=== PATIENT | female | born 2000 | race Two or more races ===

== ENCOUNTER 2021-11-03 09:03 | Outpatient (REF) | payer OTHER, SELFPAY ==
[2021-11-03 09:57] LABS: COVID-19 Test Negative (Negative); IDNOW Serial# 55D5AD1C
== END 2021-11-03 09:04 | disposition home or self-care (01) ==
LOC: HO.LAB 09:03
PROVIDERS: Visit Provider Internal Medicine
DX: Z20.822 Contact with and (suspected) exposure to COVID-19 (principal)
CPT/HCPCS: 36415; 87635; C9803

== ENCOUNTER 2023-05-27 12:29 | Outpatient (AMB) | payer OTHER, SELFPAY ==
--- NOTE | 2023-05-27 12:41 | MHC.OFFWIV ---
Intake Vital Signs 05/27/23 12:44 BP 110/68 Blood Pressure Location Rt brachial Position Sitting Pulse 80 Pulse Source Pulse Oximeter Temp 97.6 F Temp Source Temporal Artery Scan Pulse Oximetry (%) 95 Oxygen Delivery Method Room Air Intake Visit Reasons: EST/both ears blocked Intake Note: Patient here for bilat ear pain, she states she was washing her hair last week when she got water in her right ear and water has not come out, she also mentioned her left ear feels blocked. denies headaches and any dizziness. Patient Tobacco Use Status: Never used Tobacco Allergies No Known Allergies Allergy (Verified 05/27/23 12:44) Do you need a note to return to daycare/school/sports/work: No HPI HPI Comments History of Present Illness Details The patient presents to urgent care for evaluation of bilateral ear discomfort. She states that she took a shower and yesterday got water in her ears and since then has had decreased hearing. Her ears feel blocked the right more so than the left. She has been putting drops of [id number] ear pain relief without much help. [facility] Social History Patient Tobacco Use Status: Never used Tobacco Review of Systems Const Reports headache(s) and Denies increased appetite ENT Reports headache(s), Reports nasal obstruction, Denies disequilibrium, Reports post nasal drip, Reports sinus pain and Denies sore throat Card Denies radiating jaw, neck or arm pain and Denies dyspnea Resp Denies hemoptysis and Denies dyspnea Neuro Reports headache(s) and Denies disequilibrium Physical Exam Vital Signs: Last Vital Signs Temp 97.6 F 05/27/23 12:44 Pulse 80 05/27/23 12:44 BP 110/68 05/27/23 12:44 Pulse Ox 95 05/27/23 12:44 Oxygen Delivery Method Room Air 05/27/23 12:44 Const General: healthy appearing and no acute distress HEENT Other: The right ear canal occluded with cerumen Chest Chest palpation & inspection: normal inspection of the chest Resp Effort & Inspection: normal respiratory effort and able to speak in complete sentences Assessment & Plan Assessment & Plan (1) Impacted cerumen of right ear: Code(s): H61.21 - Impacted cerumen, right ear Plan The patient presents for evaluation of decreased hearing and cerumen impaction. Hydrogen peroxide was instilled in the ear and the right ear was subsequently irrigated with warm water. The impaction was not fully removed . The ear canal became somewhat red. Patient was advised to use Debrox softening drops and return next week for irrigation is not fully removed. Coding Level of Care Code Est Pt Level 3 (15039) Diagnoses Impacted cerumen of right ear H61.21
[2023-05-27 12:44] VITALS: BP 110/68; PULSE 80; TEMP 36.4; O2SAT 95
== END 2023-05-27 16:57 | disposition home or self-care (01) ==
PROVIDERS: PCP Internal Medicine; Visit Provider Emergency Medicine
DX: H61.21 Impacted cerumen, right ear (principal)
CPT/HCPCS: 99213

== ENCOUNTER 2024-04-13 12:46 | Outpatient (AMB) | payer OTHER, SELFPAY ==
--- NOTE | 2024-04-13 12:48 | AM.OFFWIN_ITS ---
Intake Vital Signs 04/13/24 12:50 Height 5 ft 1 in Weight 203 lb BMI 38.4 BP 118/76 Blood Pressure Location Rt brachial Position Sitting Pulse 67 Pulse Source Pulse Oximeter Temp 99.1 F Temp Source Oral Pulse Oximetry (%) 99 Oxygen Delivery Method Room Air Intake Visit Reasons: EP ?infection on toes after pedi Intake Note: pt here c/o ? infection on toes after pedicure 2 weeks ago. Pus on great toe of left foot. Patient Tobacco Use Status: Never used Tobacco Allergies No Known Allergies Allergy (Verified 04/13/24 12:50) Do you need a note to return to daycare/school/sports/work: Yes HPI HPI Comments History of Present Illness Details Patient is a 23-year-old female complaining of a concern of a toe infection. She states 2 weeks ago she got a pedicure including acrylic nails applied on her toes. She states when she was getting a pedicure, she felt a sharp pain in that area. She states about a week later she started feeling pain and noticed a yellow lump adjacent to the nail that is painful when she touches it. She states she has been applying hydrogen peroxide to it daily with no relief PFSH Social History Patient Tobacco Use Status: Never used Tobacco Review of Systems Const All systems reviewed & are unremarkable except as noted in HPI and below Physical Exam Vital Signs: Last Vital Signs Temp 99.1 F 04/13/24 12:50 Pulse 67 04/13/24 12:50 BP 118/76 04/13/24 12:50 Pulse Ox 99 04/13/24 12:50 Oxygen Delivery Method Room Air 04/13/24 12:50 BMI result Body Mass Index 38.4 Const General: cooperative, healthy appearing, comfortable, no acute distress and well developed Orientation/consciousness: patient oriented x3 Limitations: no limitations Neuro General: patient oriented x3 Extrem Other: 0.5 cm yellow fluid filled abscess medial to the right great toenail with surrounding erythema, tenderness to palpation. Right great toenail has a acr ylic nail applied to it which is black in color so I am unable to assess the toenail. Full range of motion of great toe. Office Procedures I&D Drain Details: Cleaned right great toe with Betadine, using sterile scalpel, mid incisional along the lateral side of the great toenail, with immediate expulsion of purulent fluid and some bleeding. Expressed more purulent fluid and small amount of blood then cleaned and applied gauze and a bandage [id number] of Skin Abscess, simple All charges added?: Procedure code (CPT) selection complete Assessment & Plan Assessment & Plan (1) Abscess around great toenail: Code(s): L03.039 - Cellulitis of unspecified toe Plan: Performed I&D with good results/drainage, advised patient to apply Aquaphor and a Band-Aid if she goes out in public. Also recommended removing the acrylic nail is soon as possible once the incision we made today is healed. Plan see above Coding Level of Care Code Est Pt Level 3 (73779) Diagnoses Abscess around great toenail L03.039 CPT Codes I&D Drain - Drain 1: [id number] of Skin Abscess, simple ([id number])
[2024-04-13 12:50] VITALS: BP 118/76; PULSE 67; TEMP 37.3; O2SAT 99; BMI 38.4
== END 2024-04-13 13:17 | disposition home or self-care (01) ==
PROVIDERS: PCP Internal Medicine; Visit Provider Physician Assistant
DX: L02.611 Cutaneous abscess of right foot (principal); L03.031 Cellulitis of right toe
CPT/HCPCS: 10060; 99213

== ENCOUNTER 2024-09-25 11:58 | Outpatient (REF) | payer OTHER, SELFPAY ==
[2024-09-25 16:53] LABS: Influenza A PCR NEGATIVE (Negative); Influenza B PCR NEGATIVE (Negative); Resp Syncy Virus RNA Qual PCR NEGATIVE (Negative); SARS COV2 PCR INHOUSE NEGATIVE (Negative)
== END 2024-09-25 11:59 | disposition home or self-care (01) ==
LOC: HO.CHCLNP 11:58
PROVIDERS: PCP Internal Medicine; Visit Provider Physician Assistant
DX: J06.9 Acute upper respiratory infection, unspecified (principal)
CPT/HCPCS: 0241U; 99212

== ENCOUNTER 2024-09-25 11:58 | Outpatient (AMB) | payer OTHER, SELFPAY ==
[2024-09-25 12:35] VITALS: BP 122/80; PULSE 83; TEMP 36.9; O2SAT 98; BMI 36.8
--- NOTE | 2024-09-25 12:35 | AM.OFFWIN_ITS ---
Intake Vital Signs 09/25/24 12:35 Height 5 ft 1 in Weight 195 lb BMI 36.8 BP 122/80 Blood Pressure Location Rt brachial Position Sitting Pulse 83 Pulse Source Pulse Oximeter Temp 98.5 F Temp Source Oral Pulse Oximetry (%) 98 Oxygen Delivery Method Room Air Intake Visit Reasons: EP-sore throat, fever,running nose,cough, ear pain Intake Note: Patient here for fever, runny nose, cough, bilat ear pain that started last week. Patient Tobacco Use Status: Never used Tobacco Allergies No Known Allergies Allergy (Verified 09/25/24 12:38) Do you need a note to return to daycare/school/sports/work: Yes Return to daycare/school/sports/work/other note: work HPI HPI Comments History of Present Illness Details This is a 23-year-old female with a past medical history of seasonal allergies presenting for evaluation of a sore throat and body aches that started at the end of last week. Patient states over the weekend she developed rhinorrhea and now has a cough. She states that she developed a ?low-grade fever? of 100.1 this morning for which she took no medications. [facility] Social History Patient Tobacco Use Status: Never used Tobacco Review of Systems Const Denies chills, Reports fever(s), Denies headache(s) and Reports lethargy Eyes Reports no additional complaints ENT Reports no additional complaints, Denies otalgia, Denies headache(s), Reports nasal discharge, Denies sinus pressure and Reports sore throat Card Reports no additional complaints and Denies dyspnea Resp Reports cough, Denies hemoptysis, Denies pain with cough, Denies dyspnea and Denies wheezing GI Reports no additional complaints Reports no additional complaints Musc Reports no additional complaints and Reports myalgias Neuro Reports no additional complaints and Denies headache(s) Psych Reports no additional complaints Antelmo/Lymph Reports no additional complaints Aller/Immun Reports no additional complaints and Denies wheezing Physical Exam Vital Signs: Last Vital Signs Temp 98.5 F 09/25/24 12:35 Pulse 83 09/25/24 12:35 BP 122/80 09/25/24 12:35 Pulse Ox 98 09/25/24 12:35 Oxygen Delivery Method Room Air 09/25/24 12:35 BMI result Body Mass Index 36.8 Patient is afebrile. Const General: cooperative, healthy appearing, comfortable, no acute distress, well developed, alert, awake and Physically active; No lethargic Nutritional Appearance: well nourished Orientation/consciousness: patient oriented x3 and No lethargic Limitations: no limitations HEENT Head: Yes normal to inspection and Yes normocephalic Ears: hearing grossly normal bilaterally, external ears normal, TM's normal bilaterally and EAC's normal General nose exam: Normal external nose present Face and sinus: Yes normal facial exam Mouth: Normal oral and palatal mucosa present Teeth and gingiva: dentition normal Throat: Yes posterior oropharynx normal (There is no edema, erythema or exudates of the posterior oropharynx; +pnd ) and Yes postnasal drainage Eyes General: appearance normal, both eyes and all related structures Conjunctivae: conjunctivae normal EOM: EOMs intact bilaterally Neck Lymphatic: no lymphadenopathy noted Resp Effort & Inspection: normal respiratory effort, able to speak in complete sentences, no audible wheezes, no cough and no respiratory distress Cardio Rate: regular rate Rhythm: regular rhythm Skin General skin exam: no rashes or lesions noted Neuro General: patient oriented x3 Psych Appearance: grossly normal Mental Status: mental status grossly normal Insight: Good insight present (Psych) Judgement: Good judgement present (Psych) Assessment & Plan Assessment & Plan (1) Acute upper respiratory infection: Comment: SARS panel is initiated and pending. No evidence of an acute bacterial pharyngitis or sinusitis. Code(s): J06.9 - Acute upper respiratory infection, unspecified Plan: Ibuprofen or Tylenol as needed, increase fluids daily and follow up with PCP as needed. Results of SARS panel are pending at this time. Orders: Orders SARS-CoV2/FLU/RSV Today J06.9 - Acute upper respiratory infection, unspecified Coding Level of Care Code Est Pt Level 3 (20365) Diagnoses Acute upper respiratory infection J06.9 Time Spent (min) 20
== END 2024-09-25 12:56 | disposition home or self-care (01) ==
PROVIDERS: PCP Internal Medicine; Visit Provider Physician Assistant
DX: J06.9 Acute upper respiratory infection, unspecified (principal)